=== PATIENT | male | born 1955 | race American Indian/Alaskan Native ===

== ENCOUNTER 2017-02-21 18:11 | Emergency (ER) | payer MEDICARE ==
--- NOTE | 2017-02-21 20:03 | Cat Scan Report ---
FINAL REPORT EXAM: CT HEAD/BRAIN WO CON HISTORY: head injury TECHNIQUE: CT head without contrast PRIORS: No prior studies are submitted for comparison FINDINGS: There is encephalomalacia posterior left parietal/occipital region consistent with remote infarct. No acute intra or extra-axial hemorrhage identified. No evidence for midline shift or mass effect. No acute parenchymal abnormalities are identified. There is ex vacuo dilatation posterior horn left lateral ventricle. IMPRESSION: Remote left posterior parietal/occipital infarct No acute abnormality identified
--- NOTE | 2017-02-21 20:39 | XRay Report ---
FINAL REPORT EXAM: XR ELBOW 2V RT HISTORY: right elbow pain post fall TECHNIQUE: Two views of the right elbow PRIORS: None. FINDINGS: There is acute traumatic fracture of the distal humerus. There is transverse component running through epicondyles with a vertical component running through mid articular surface the humerus. There is mild distraction of fracture fragments. There is fluid within the joint space. Degenerative changes are noted osteophytes seen of the radial head. IMPRESSION: Acute intra-articular fracture of the distal humerus
--- NOTE | 2017-02-21 20:51 | XRay Report ---
FINAL REPORT EXAM: XR HUMERUS 2+V RT HISTORY: right upper arm pain post fall TECHNIQUE: Right humerus two views PRIORS: None. FINDINGS: There is acute fracture of the distal humerus further described on today's elbow series. No proximal humeral fractures are identified. No evidence of dislocation of the shoulder. IMPRESSION: Acute fracture of the distal humerus further described on today's elbow series
--- NOTE | 2017-02-21 21:06 | XRay Report ---
FINAL REPORT PROCEDURE: Right wrist. TECHNIQUE: AP and lateral views. HISTORY: Wrist pain after falling. COMPARISON: No prior studies are available for comparison. FINDINGS: The bones appear intact without fracture or dislocation. The joint spaces appear normal. The soft tissues are unremarkable. IMPRESSION: Normal study.
[2017-02-21] MEDS ORDERED: ULTRAM ONE (21:07)
[2017-02-21] MEDS ORDERED: ULTRAM PO ONE (21:08)
--- NOTE | 2017-02-21 21:15 | Emergency Department Report ---
Upper Extremity - HPI Chief Complaint: Extremity Injury, Upper Stated Complaint: FALL R ARM PAIN Time Seen by Provider: 02/21/17 21:10 Upper Extremity: Right Elbow (right arm pain and swelling) Occurred When: 2 Days Mechanism: Fall (from bottom step on porch) Severity: severe Symptoms: Yes Pain with Movement, Yes Limited Range of Movement, Yes Swelling, No Deformity, No Numbness, No Weakness, No Bruising/Ecchymosis, No Laceration or Abrasion Other History: This is a 61 y.o. male presents with pain and swelling to right elbow. Patient states she was pushing mother in-law down her front porch stairs and missed the last step. He fell face forward and tried to break fall with right arm. He put ice on it for 24 hours and continued normal activity. His forced him to come in today because he couldn't move right arm and the swelling got worse. Denies LOC, chest pain, SOB, difficulty breathing, numbness , and tingling. ED Review of Systems ROS: Stated complaint: FALL R ARM PAIN Other details as noted in HPI Constitutional: denies: chills, fever Respiratory: denies: cough, shortness of breath, wheezing Cardiovascular: denies: chest pain, palpitations Gastrointestinal: denies: abdominal pain, nausea, diarrhea Musculoskeletal: joint swelling (right elbow) Skin: other (multiple abrasions to nose, forehead, and upper lip) Neurological: denies: headache, weakness, paresthesias ED Past Medical Hx - Past Medical History Hx Hypertension: Yes Hx CVA: Yes Hx Heart Attack/AMI: Yes Hx Diabetes: Yes - Surgical History Past Surgical History?: No - Social History Smoking Status: Never Smoker Substance Use Type: None - Medications Home Medications: Home Medications Medication Instructions Recorded Confirmed Last Taken Type Bacitracin Zinc [Antibiotic] 28.4 gm TP BID 5 Days #1 oint...g. 02/21/17 Unknown Rx NovoLIN N 10 unit SQ HS 02/21/17 02/21/17 Unknown History NovoLIN N 28 units SQ DAILY 02/21/17 02/21/17 Unknown History Novolin R 6 unit SQ DAILY 02/21/17 02/21/17 Unknown History Novolin R 12 unit SQ HS 02/21/17 02/21/17 Unknown History Warfarin Sodium [Coumadin] 1 tab PO DAILY 02/21/17 02/21/17 Unknown History traMADol [Ultram 50 MG tab] 50 mg PO Q6HR PRN #20 tablet 02/21/17 Unknown Rx Upper Extremity Exam - Exam General: Vital signs noted. No distress. Alert and acting appropriately. Head and Torso: No HEENT Abnormality, No Neck Tenderness, No Chest/Lungs Abnormality, No Abdominal Tenderness, No Back Tenderness Shoulder Exam: No Shoulder Tenderness, No Clavicle Tenderness, No Normal Range of Motion in Shoulder (limited by pain), No Shoulder Deformity, No AC Joint Tenderness Arm Exam: Yes Arm/Humerus Tenderness (tender to palpation at radiohumeral joint) , No Arm Deformity Elbow: Yes Elbow Tenderness, No Normal Range of Motion in Elbow (unable to tolerate supernation or pronation due to pain), No Elbow Deformity Forearm: Yes Forearm Tenderness, Yes Pain with Pronation, Yes Pain with Supination, No Forearm Deformity Wrist: Yes Normal ROM in Wrist, No Wrist Tenderness, No Wrist Deformity, No Snuffbox Tenderness, No Pain with Axial Thumb Compression Hand: Yes Normal ROM in Digit(s), No Hand Tenderness, No Hand Deformity, No Digit Tenderness, No Digit(s) Deformity, No Tendon Dysfunction CMS Exam: Yes Normal Distal Pulses, Yes Normal Capillary Refill, Yes Normal Distal Sensation, No Broken Skin ED Course Vital Signs 02/21/17 19:18 Temperature 98.5 F Pulse Rate 88 Respiratory 18 Rate Blood Pressure 140/88 O2 Sat by Pulse 97 Oximetry ED Medical Decision Making - Radiology Data Radiology results: image reviewed CT of head IMPRESSION: Remote left posterior parietal/occipital infarct No acute abnormality identified Right Wrist FINDINGS: The bones appear intact without fracture or dislocation. The joint spaces appear normal. The soft tissues are unremarkable. IMPRESSION: Normal study. XR Right Humerus IMPRESSION: Acute fracture of the distal humerus further described on today's elbow series XR right elbow MPRESSION: Acute intra-articular fracture of the distal humerus - Medical Decision Making This is a 61 y.o. male presents with pain and swelling to right elbow from fall 2 days ago. Multiple abrasions to face. Patient reports pushing mother in-law down the stairs of front porch, missed the last step and fell face forward. He tried to break fall with right hand. He continued doing normal duties and placed ice to are for 24 hours. Swelling got worse and he was unable to move arm Tuesday. His made him come form evaluation. Physical exam: Unable to tolerate passive supernation and pronation of right elbow due to pain. CT of head IMPRESSION: Remote left posterior parietal/occipital infarct No acute abnormality identified Right Wrist FINDINGS: The bones appear intact without fracture or dislocation. The joint spaces appear normal. The soft tissues are unremarkable. IMPRESSION: Normal study. XR Right Humerus IMPRESSION: Acute fracture of the distal humerus further described on today's elbow series XR right elbow MPRESSION: Acute intra-articular fracture of the distal humerus Tramadol 50 mg po once given in ER Acute fracture of distal humerus: Double sugar-tong splint to RUE and sling Discharged home with tramadol F/U with Orthopedic, Dr. Frausto Critical care attestation.: If time is entered above; I have spent that time in minutes in the direct care of this critically ill patient, excluding procedure time. ED Disposition Clinical Impression: Right arm pain Fracture of distal humerus Qualifiers: Encounter type: initial encounter Fracture type: closed Fracture morphology: other fracture Fracture alignment: nondisplaced Laterality: right Qualified Code (s): S42.494A - Other nondisplaced fracture of lower end of right humerus, initial encounter for closed fracture Fall down steps Qualifiers: Encounter type: initial encounter Qualified Code(s): W10.8XXA - Fall (on) (from ) other stairs and steps, initial encounter Disposition: TO HOME OR SELFCARE Is pt being admited?: No Does the pt Need Aspirin: No Condition: Stable Instructions: Fall Prevention (ED), Elbow Fracture in Adults (ED) Additional Instructions: Follow up with Orthopedic Surgery Dr. Frausto. Apply bacitracin ointment to abrasions on face to prevent infection. Take medication as prescribed to control pain. Wear sling and splint at all times. Prescriptions: Bacitracin Zinc [Antibiotic] 28.4 gm TP BID 5 Days #1 oint...g. traMADol [Ultram 50 MG tab] 50 mg PO Q6HR PRN #20 tablet PRN Reason: Pain Referrals: PRIMARY CARE, [Primary Care Provider] - 3-5 Days DESTINEY FRAUSTO MD [Staff Physician] - 3-5 Days [facility] [Outside] - 3-5 Days [facility] [Outside] - 3-5 Days Time of Disposition: 22:31 Print Language: [place]
[2017-02-21 23:02] VITALS: BP 136/96
== END 2017-02-21 23:02 | disposition home or self-care (01) ==
LOC: ED 18:11
DX: S42.494A Other nondisplaced fracture of lower end of right humerus, initial encounter for closed fracture (principal); I10 Essential (primary) hypertension; E11.9 Type 2 diabetes mellitus without complications; W10.8XXA Fall (on) (from) other stairs and steps, initial encounter; Y93.89 Activity, other specified; Y92.89 Other specified places as the place of occurrence of the external cause; Y99.8 Other external cause status
CPT/HCPCS: 70450

== ENCOUNTER 2020-10-07 03:57 | Emergency (ER) | payer MEDICARE ==
[2020-10-07 04:35] LABS: Basophils # (Auto) 0.1 K/mm3 (0.0-0.1); Basophils % (Auto) 0.6 % (0.0-1.8); Eosinophils # (Auto) 0.3 K/mm3 (0.0-0.4); Eosinophils % (Auto) 3.3 % (0.0-4.3); Lymphocytes # (Auto) 2.7 K/mm3 (1.2-5.4); Lymphocytes % (Auto) 31.7 % (13.4-35.0); Mean Corpuscular HGB Conc 31 % (32-34); Monocytes # (Auto) 0.8 K/mm3 (0.0-0.8); Monocytes % (Auto) 9.2 % (0.0-7.3); Platelet Count 195 K/mm3 (140-440); Red Blood Count 5.98 M/mm3 (3.65-5.03); Red Cell Distribution Width 17.5 % (13.2-15.2)
--- NOTE | 2020-10-07 04:42 | XRay Report ---
Chest single view INDICATION: Dyspnea IMPRESSION: Cardiomegaly with mild bilateral interstitial edema. Signer Name: Alexei La MD Signed: 10/07/2020 4:38 AM Workstation Name: [id number]
[2020-10-07 04:44] LABS: Hematocrit 39.5 % (35.5-45.6); Hemoglobin 12.1 gm/dl (11.8-15.2); Mean Corpuscular Volume 66 fl (84-94)
[2020-10-07 04:59] LABS: Alanine Aminotransferase 18 units/L (7-56); Albumin 3.9 g/dL (3.9-5); BUN/Creatinine Ratio 18; Blood Urea Nitrogen 14 mg/dL (9-20); Calcium 10.1 mg/dL (8.4-10.2); Hemolysis Index 12
[2020-10-07 08:30] VITALS: BP 172/116
--- NOTE | 2020-10-07 11:36 | Emergency Department Report ---
ED Shortness of Breath HPI - General Chief Complaint: Dyspnea/Respdistress Stated Complaint: DIFFICULTY BREATHING Source: patient Mode of arrival: Ambulatory Limitations: No Limitations - History of Present Illness Initial Comments: 65-year-old male, history of diabetes, hypertension, CHF, presented to ED earlier this morning with shortness of breath. Patient denies any cough, fever, chest pain. Patient reports he has been fully vaccinated against COVID-19 with Moderna vaccine. Patient reports 4 pillow orthopnea. He reports baseline lower extremity swelling. Patient states he is not currently seeing a chilling hood operator. States he is not currently on any diuretics. Patient seen and evaluated in the waiting room, as there are no open rooms available in the ED. ED is full of admission holds. O2 sats were re-assessed on room air and found to be 96%. Patient not currently in any respiratory distress. Patient states he is feeling much better at this time. MD Complaint: shortness of breath -: Last night Severity: moderate Consistency: now resolved Improves With: nothing Worsens With: exertion Known History Of: congestive heart failure Treatments Prior to Arrival: oxygen - Related Data Home Oxygen Therapy: No Home Medications Medication Instructions Recorded Confirmed Last Taken NovoLIN N 10 unit SQ HS 02/21/17 02/21/17 Unknown NovoLIN N 28 units SQ DAILY 02/21/17 02/21/17 Unknown Novolin R 6 unit SQ DAILY 02/21/17 02/21/17 Unknown Novolin R 12 unit SQ HS 02/21/17 02/21/17 Unknown Warfarin Sodium [Coumadin] 1 tab PO DAILY 02/21/17 02/21/17 Unknown Previous Rx's Medication Instructions Recorded Last Taken Type Bacitracin Zinc [Antibiotic] 28.4 gm TP BID 5 Days #1 oint...g. 02/21/17 Unknown Rx traMADoL [Ultram 50 MG tab] 50 mg PO Q6HR PRN #20 tablet 02/21/17 Unknown Rx Allergies Allergy/AdvReac Type Severity Reaction Status Date / Time Penicillins Allergy Itching Verified 02/21/17 19:25 ED Review of Systems ROS: Stated complaint: DIFFICULTY BREATHING Other details as noted in HPI Comment: All other systems reviewed and negative Constitutional: denies: fever Respiratory: orthopnea, shortness of breath. denies: cough Cardiovascular: denies: chest pain ED Past Medical Hx - Past Medical History Previous Medical History?: Yes Hx Hypertension: Yes Hx CVA: Yes Hx Heart Attack/AMI: Yes Hx Diabetes: Yes - Surgical History Past Surgical History?: No - Social History Smoking Status: Never Smoker Substance Use Type: None - Medications Home Medications: Home Medications Medication Instructions Recorded Confirmed Last Taken Type Bacitracin Zinc [Antibiotic] 28.4 gm TP BID 5 Days #1 oint...g. 02/21/17 Unknown Rx NovoLIN N 10 unit SQ HS 02/21/17 02/21/17 Unknown History NovoLIN N 28 units SQ DAILY 02/21/17 02/21/17 Unknown History Novolin R 6 unit SQ DAILY 02/21/17 02/21/17 Unknown History Novolin R 12 unit SQ HS 02/21/17 02/21/17 Unknown History Warfarin Sodium [Coumadin] 1 tab PO DAILY 02/21/17 02/21/17 Unknown History traMADoL [Ultram 50 MG tab] 50 mg PO Q6HR PRN #20 tablet 02/21/17 Unknown Rx ED Physical Exam - General Limitations: No Limitations General appearance: alert, in no apparent distress, obese - Eye Eye exam: Present: normal appearance - ENT ENT exam: Present: mucous membranes moist - Neck Neck exam: Present: normal inspection - Respiratory Respiratory exam: Absent: respiratory distress - Cardiovascular Cardiovascular Exam: Present: regular rate, normal rhythm - GI/Abdominal GI/Abdominal exam: Present: soft. Absent: distended, tenderness - Extremities Exam Extremities exam: Present: other (2+ edema bilateral lower legs) - Neurological Exam Neurological exam: Present: alert, oriented X3 - Psychiatric Psychiatric exam: Present: normal affect, normal mood - Skin Skin exam: Present: warm, dry, intact, normal color ED Course Vital Signs 10/07/20 10/07/20 04:47 11:06 Temperature 98.8 F Pulse Rate 98 H 89 Respiratory 16 20 Rate Blood Pressure 172/116 O2 Sat by Pulse 96 96 Oximetry ED Medical Decision Making - Lab Data Result diagrams: 10/07/20 04:18 10/07/20 04:18 - Radiology Data Radiology results: report reviewed, image reviewed - Medical Decision Making 65-year-old male presents to ED with shortness of breath. Patient evaluated in the waiting room as there is no space in the ED to evaluate patients. Chest x- ray shows some pulmonary edema. Patient is in no respiratory distress, O2 sats are normal on room air. Initial troponin is normal. A repeat troponin was ordered. I asked hvac installation technician to do an EKG on patient, however, I was informed that patient had already left. Patient apparently presented to triage nurse and stated that he was leaving. I did not have an opportunity to speak with patient prior to him leaving. - Differential Diagnosis CHF exacerbation, COVID-19, ACS Critical care attestation.: If time is entered above; I have spent that time in minutes in the direct care of this critically ill patient, excluding procedure time. ED Disposition Clinical Impression: Dyspnea Disposition: 07 LEFT AGAINST MEDICAL ADVICE Is pt being admited?: No Condition: Stable Referrals: PRIMARY CARE, [Primary Care Provider] - 3-5 Days Time of Disposition: 11:41
== END 2020-10-07 11:25 | disposition left against medical advice (07) ==
LOC: ED 03:57
DX: R06.00 Dyspnea, unspecified (principal); Z88.0 Allergy status to penicillin; E11.8 Type 2 diabetes mellitus with unspecified complications; I11.0 Hypertensive heart disease with heart failure; Z86.73 Personal history of transient ischemic attack (TIA), and cerebral infarction without residual deficits
CPT/HCPCS: 36415; 71045; 80053; 83880; 84484; 85025; 99283